=== PATIENT | male | born 1965 | race Caucasian/White ===

== ENCOUNTER 2017-12-14 19:18 | Emergency (ER) | payer MEDICARE, OTHER ==
[2017-12-14] MEDS: KETOROLAC 30 MG INJ IM (23:21)
[2017-12-14] MEDS: OXYCODONE/ACETAMINOPHEN (5/325) TAB PO (23:21)
== END 2017-12-14 23:33 | disposition home or self-care (01) ==
LOC: E/R 19:18
DX: G89.4 Chronic pain syndrome (principal); E11.9 Type 2 diabetes mellitus without complications; I10 Essential (primary) hypertension; I25.10 Atherosclerotic heart disease of native coronary artery without angina pectoris; Z87.891 Personal history of nicotine dependence; Z79.4 Long term (current) use of insulin; Z98.61 Coronary angioplasty status; Z95.1 Presence of aortocoronary bypass graft
CPT/HCPCS: 96372; 99284-25